=== PATIENT | male | born 1985 | race Caucasian/White ===

== ENCOUNTER 2022-01-18 21:41 | Emergency (ER) | payer MEDICAID, SELFPAY ==
[2022-01-18 21:42] VITALS: BP 174/90; PULSE 94; RESP 18; TEMP 36.7; O2SAT 98; BMI 28.7
[2022-01-18] MEDS: Fluorescein 1 MG STRIP 1 STRIP LEFT EYE (22:32)
[2022-01-18] MEDS: Tetracaine 0.5% Ophthalmic Bottle 1 DRP LEFT EYE (22:35)
--- NOTE | 2022-01-18 22:53 | EDS_ITS ---
HPI History of Present Illness Chief Complaint: Eye Problem Narrative Narrative: Is a 36-year-old male with no significant past medical history. He states he was grinding metal on his child's go-cart yesterday. He states that he was doing this he felt like there was metal that went into his left eye. He states he flushed his left eye and felt like things were better but today noticed increased redness and pain and tearing. He denies any change in vision or contact lens use but with concern for retained foreign body presents for evaluation. PFSH PFS Medical History no medical history no medical history Home Medications ciprofloxacin HCl 0.3 % eye drops 2 drp LEFT EYE 4X/DAY 5 days #10 mL 01/18/22 [Rx Last Taken Unknown] Allergy/AdvReac Type Severity Reaction Status Date / Time No Known Allergies Allergy Verified 01/18/22 21:44 Surgical History no surgical history Social History Smoking Status: Current every day smoker tobacco type: cigarettes ROS ROS ED Constitutional Constitutional ED: Denies chills or fever(s) Eyes Eyes: Reports other Details: Positive left eye pain and redness ; Denies change in vision ENT ENT ED: Denies sore throat Cardiovascular Cardiovascular: Denies chest pain Respiratory/Chest Respiratory/Chest: Denies cough or dyspnea Gastrointestinal Gastrointestinal: Denies abdominal pain, diarrhea, nausea or vomiting Genitourinary Genitourinary ED: Denies dysuria Musculoskeletal Musculoskeletal: Denies myalgias Integumentary Denies rash Neurologic Neurologic: Denies headache(s) Hematologic/Lymphatic Hematologic/Lymphatic: Denies easy bleeding or easy bruising EXAM Physical Exam Const Vital Signs: 01/18/22 21:42 Temperature 98.1 F Temperature Source Temporal Pulse Rate 94 Respiratory Rate 18 Blood Pressure 174/90 H Blood Pressure Mean 118 Pulse Ox 98 Oxygen Delivery Method Room Air Positive well nourished and well developed General Appearance ED: well developed HEENT Reports moist mucous membranes Eyes PERRL and EOMs intact bilaterally Eyes Narrative: Left eye has scleral injection. The upper lid was everted there is no obvious foreign body. He does have relief of pain with tetracaine. Slit-lamp exam reveals multiple small abrasions along the nasal aspect of the eye ranging from the 7 to 10 o'clock position. There is no obvious retained foreign body and negative Dunia sign. Neck supple Resp normal respiratory effort and clear to auscultation bilaterally Cardio regular rate and regular rhythm Extremity normal to inspection Neuro oriented x3 and CN's II-XII intact bilaterally Sensorium / Orientation: alert Psych mental status grossly normal Skin no rashes or lesions noted MDM MDM MDM Narrative Medical decision making narrative: Patient presented to the ER approximately 24 hours out after left eye injury. He does not wear contacts he does not have change in vision but has concern for retained foreign body. Physical exam shows scleral injection with increased tearing. The slit-lamp exam does not reveal any obvious retained foreign body but does display multiple small abrasions along the medial aspect of the eye over top the sclera and iris. At this time as there is no retained foreign body patient can be placed on antibiotics and discharged home. There is no need for emergent ophthalmology consultation. Patient replaced on ciprofloxacin ophthalmic drops prevent infection and he will be advised to see ophthalmology in outpatient basis if symptoms do not improve Discharge Plan Triage Chief Complaint: Eye Problem ED Provider: Jerome Lewis Dx/Rx/DC Orders Clinical Impression: Injury of conjunctiva and corneal abrasion of left eye w/o FB Prescriptions: New ciprofloxacin HCl 0.3 % drops 2 drp LEFT EYE 4X/DAY 5 Days Qty: 10 0RF Primary Care Provider: Care Physician,No Primary Referrals: Ruddy Goyal MD [Med Staff - Active Staff] - Zayra Reagan DO [Med Staff - Chief Mechanical Officer] - Activity Restrictions/Additional Instructions: Please use the eyedrops that were prescribed prevent infection and if your symptoms not improving in approximately 5 days see ophthalmology for repeat evaluation and return to the ER should you have any further concerns Disposition Disposition: Home, Self Care
[2022-01-18] MEDS: Ciprofloxacin 0.3% 2.5ml Bottle 2 DRP OPHTHALMIC (23:02)
[2022-01-18 23:05] VITALS: BP 174/90; PULSE 94; RESP 18; O2SAT 98
== END 2022-01-18 23:15 | disposition home or self-care (01) ==
PROVIDERS: Emergency Provider Emergency Medicine; Visit Provider Emergency Medicine
DX: S05.02XA Injury of conjunctiva and corneal abrasion without foreign body, left eye, initial encounter (principal); F17.210 Nicotine dependence, cigarettes, uncomplicated; X58.XXXA Exposure to other specified factors, initial encounter
CPT/HCPCS: 99282

== ENCOUNTER → 2022-10-22 | Outpatient (CLI) | payer BC, MEDICAID, SELFPAY | END | disposition home or self-care (01) | PROVIDERS: Referring Provider Dermatology; Visit Provider Dermatology | DX: L08.9 Local infection of the skin and subcutaneous tissue, unspecified (principal) | CPT/HCPCS: 87070; 87077; 87186; 87205 ==